=== PATIENT | female | born 1995 | race Caucasian/White ===

== ENCOUNTER 2018-08-08 19:46 | Emergency (ER) | payer OTHER ==
[~2018-08-08] VITALS: Ht 167.6 cm; Wt 77.1 kg
--- NOTE | 2018-08-08 20:18 | NUR ---
PT TAKEN TO BED 6
[2018-08-08 20:20] VITALS: BP 136/86
--- NOTE | 2018-08-08 20:20 | NUR ---
PATIENT PRESENTS TO ED WITH C/O LLQ ABD PAIN X 3 DAYS. PT DENIES N/V/D; SKIN IS PINK/WARM/DRY; AAOX4 WITH EVEN AND STEADY GAIT; LUNGS CLEAR BL; HR EVEN AND REGULAR; PATIENT STATES PAIN OF 8/10 AT THIS TIME; VSS; PATIENT POSITIONED FOR COMFORT; HOB ELEVATED; BEDRAILS UP X2; BED DOWN. ER MD MADE AWARE OF PT STATUS.
--- NOTE | 2018-08-08 20:56 | NUR ---
Dr. Mcgowan evaluating patient at bedside.
[2018-08-08 21:23] LABS: APPEARANCE,URINE CLEAR (CLEAR); BILIRUBIN,URINE NEGATIVE (NEGATIVE); BLOOD, URINE 3+ (NEGATIVE); COLOR,URINE YELLOW (YELLOW); LEUKOCYTE ESTERASE ,URINE NEGATIVE (NEGATIVE); NITRITE, URINE NEGATIVE (NEGATIVE); UGLUCOSE NEGATIVE (NEGATIVE)
[2018-08-08 21:58] LABS: RBC,URINE 0-5 (RARE) /HPF (0-5); WBC,URINE 0-5 (RARE) /HPF (0-5)
--- NOTE | 2018-08-08 22:11 | NUR ---
PT RETURN FROM ULTRASOUND
[2018-08-08] MEDS ORDERED: LACTULOSE 20 GM/30 ML UDC PO ONE (23:05)
[2018-08-08 23:17] VITALS: BP 112/67
== END 2018-08-08 23:17 | disposition home or self-care (01) ==
LOC: MED 19:46
DX: K59.00 Constipation, unspecified (principal)
CPT/HCPCS: 74018; 76856; 81001; 81025; 87086; 99284; Q0092